=== PATIENT | male | born 1960 | race African-American/Black ===

== ENCOUNTER 2022-10-28 17:42 | Inpatient (IN) | payer OTHER ==
[2022-10-28 17:58] VITALS: BMI 32.6
[2022-10-28 18:55] LABS: BASO % 0.3 % (0-2.0); EOS % 0.1 % (0-4.5); HEMATOCRIT 36.5 % (35.4-49); HEMOGLOBIN 11.8 GM/dL (11.7-16.9); LYMPH % 17.8 % (8-40); MCH 27.3 pg (25.7-33.7); MCHC 32.3 g/dl (32.0-35.9); MEAN CELL VOLUME 84.4 fl (80-96); MEAN PLT VOLUME 8.6 fl (7.5-11.1); MONO % 12.2 % (3.8-10.2); NEUT % 69.6 % (42.8-82.8); PLATELET COUNT 353 10^3/uL (134-434); RBC 4.32 M/mm3 (4.00-5.60); RDW 16.3 % (11.9-15.9); VENOUS BASE EXCESS -2.5 mmol/L (-2-2); VENOUS O2 SATURATION 89.8 % (70-80); VENOUS PH 7.408 (7.310-7.410); WHITE BLOOD COUNT 6.9 K/mm3 (4.0-10.0)
[2022-10-28 19:00] LABS: INR 1.28 (0.83-1.09); PROTHROMBIN TIME (PATIENT) 14.8 SEC (9.7-13.0)
[2022-10-28 19:02] LABS: ACTIVATED PTT 19.6 SECONDS (25.2-36.5)
[2022-10-28 19:15] LABS: POTASSIUM 4.3 mmol/L (3.5-5.1)
[2022-10-28 19:16] LABS: CALCIUM 9.6 mg/dL (8.5-10.1)
[2022-10-28 19:17] LABS: ALBUMIN 3.4 g/dl (3.4-5.0); MAGNESIUM 2.1 mg/dL (1.8-2.4)
[2022-10-28 19:20] LABS: CREATININE 1.1 mg/dL (0.55-1.3)
[2022-10-28 19:22] LABS: BILIRUBIN,TOTAL 0.4 mg/dL (0.2-1); TOT PROT 7.3 g/dl (6.4-8.2)
[2022-10-28 19:25] LABS: N-TERMINAL BNP 125.8 pg/ml (5-125)
[2022-10-28 19:33] LABS: LACTIC ACID 3.4 mmol/L (0.4-2.0)
[2022-10-28] MEDS: ALBUTEROL SO4 2.5/IPRATROPIUM 0.5 INH SOL 3 ML VIAL.NEB. NEB SCH ×3 (20:15→21:21)
[2022-10-28] MEDS ORDERED: SODIUM CHLORIDE 0.9% 500 ML INFUS.BAG IV ONE (20:29)
[2022-10-28] MEDS ORDERED: CEFTRIAXONE 1 GM in DEXTROSE 5%-WATER - 50 ML IVPB ONE (20:29)
[2022-10-28] MEDS ORDERED: AZITHROMYCIN IVPB 500 MG in DEXTROSE 5%-WATER - 250 ML IVPB ONE (20:29)
[2022-10-28] MEDS ORDERED: ALBUTEROL SO4 2.5/IPRATROPIUM 0.5 INH SOL 3 ML VIAL.NEB. NEB ONE (20:36)
[2022-10-28] MEDS ORDERED: CEFTRIAXONE 1 GM/50 ML BAG ONE (20:37)
[2022-10-28] MEDS ORDERED: AZITHROMYCIN IVPB 500 MG/250 ML BAG IVPB ONE (20:37)
[2022-10-28 22:31] LABS: SYPHILIS W/ RPR CONF NON-REACTIVE (NONREACTIVE)
[2022-10-28 22:43] LABS: HIV INTERPRETATION NEGATIVE (NEGATIVE)
[2022-10-29 00:07] LABS: EPI CELLS 14 /uL (0-25.1); HYALINE CASTS 3 /uL (0-3.1); PH,URINE 5.5 (5.0-8.0); URINE APPEARANCE CLEAR; URINE BACTERIA 4 /uL (0-1359); URINE BILIRUBIN NEGATIVE (NEGATIVE); URINE COLOR DK YELLOW; URINE GLUCOSE (UA) 1+ (NEGATIVE); URINE KETONE TRACE (NEGATIVE); URINE LEUK ESTERASE NEGATIVE (NEGATIVE); URINE NITRITE NEGATIVE (NEGATIVE); URINE PROTEIN 1+ (NEGATIVE); URINE WBC 13 /uL (0-25.8)
[2022-10-29 01:08] LABS: COCAINE, UR NEGATIVE (NEGATIVE)
[2022-10-29 01:10] LABS: METHADONE, UR NEGATIVE (NEGATIVE); OPIATES, URI NEGATIVE (NEGATIVE); PHENCYCLIDINE,URINE NEGATIVE (NEGATIVE); URINE AMPHETAMINES NEGATIVE (NEGATIVE); URINE BARBITURATES NEGATIVE (NEGATIVE)
[2022-10-29 01:20] LABS: URINE BENZODIAZEPINES NEGATIVE (NEGATIVE)
[2022-10-29] MEDS ORDERED: methylPREDNISolone NA SUCC 125 MG/2 ML VIAL IVPUSH ONE (02:25)
[2022-10-29] MEDS ORDERED: guaiFENesin 200 MG/10 ML 10 ML UNIT-DOSE CUPS PO PRN (02:26)
[2022-10-29] MEDS ORDERED: ALBUTEROL SO4 0.083% IH SOL 2.5 MG/3 ML VIAL.NEB. NEB ONE (02:58)
[2022-10-29] MEDS ORDERED: ALBUTEROL SO4 2.5/IPRATROPIUM 0.5 INH SOL 3 ML VIAL.NEB. NEB ONE (03:17)
[2022-10-29 04:00] VITALS: RESP 20
[2022-10-29] MEDS ORDERED: traMADol HCL 50 MG TABLET PO ONE (04:47)
[2022-10-29] MEDS: MELATONIN 5 MG TABLETS PO PRN ×2 (05:04→21:34)
[2022-10-29 07:38] LABS: URINE RBC 63.4 /uL (0-23.9)
[2022-10-29] MEDS: ALBUTEROL SO4 2.5/IPRATROPIUM 0.5 INH SOL 3 ML VIAL.NEB. NEB SCH ×2 (07:55→11:16)
[2022-10-29] MEDS ORDERED: BUDESONIDE 0.25 MG/2ML INH SUSP VIAL NEB SCH (08:00)
[2022-10-29] MEDS: INSULIN SLIDING SCALE (NOVOLOG) 1 VIAL SQ SCH ×4 (08:30→21:32)
[2022-10-29] MEDS: INSULIN (LEVEMIR) 100 UNITS/ML UNITS SQ SCH (08:30)
[2022-10-29 08:36] LABS: BASO % 0.3 % (0-2.0); HEMATOCRIT 34.8 % (35.4-49); HEMOGLOBIN 11.6 GM/dL (11.7-16.9); LYMPH % 19.3 % (8-40); MCH 27.8 pg (25.7-33.7); MCHC 33.3 g/dl (32.0-35.9); MEAN CELL VOLUME 83.7 fl (80-96); MEAN PLT VOLUME 7.8 fl (7.5-11.1); MONO % 4.4 % (3.8-10.2); PLATELET COUNT 341 10^3/uL (134-434); RBC 4.16 M/mm3 (4.00-5.60); RDW 16.2 % (11.9-15.9); WHITE BLOOD COUNT 5.5 K/mm3 (4.0-10.0)
[2022-10-29 08:38] LABS: POTASSIUM 4.9 mmol/L (3.5-5.1)
[2022-10-29 08:40] LABS: CALCIUM 9.6 mg/dL (8.5-10.1)
[2022-10-29] MEDS: guaiFENesin/D-METHORPHAN HB 10 ML UNIT-DOSE CUPS PO SCH ×3 (08:41→21:34)
[2022-10-29 08:42] LABS: ALBUMIN 3.2 g/dl (3.4-5.0); BLOOD UREA NITROGEN 31.1 mg/dL (7-18)
[2022-10-29 08:44] LABS: CREATININE 1.1 mg/dL (0.55-1.3); PHOSPHOROUS 3.3 mg/dL (2.5-4.9)
[2022-10-29 08:45] LABS: BILIRUBIN,TOTAL 0.4 mg/dL (0.2-1); TOT PROT 7.2 g/dl (6.4-8.2)
[2022-10-29 08:47] LABS: LACTIC ACID 3.3 mmol/L (0.4-2.0)
[2022-10-29] MEDS ORDERED: AZITHROMYCIN IVPB 500 MG in DEXTROSE 5%-WATER - 250 ML IVPB SCH (10:00)
[2022-10-29] MEDS ORDERED: methylPREDNISolone NA SUCC 40 MG/1 ML VIAL IVPUSH SCH (10:00)
[2022-10-29] MEDS ORDERED: ASPIRIN 81 MG CHEWABLE TABLETS PO SCH (10:00)
[2022-10-29] MEDS ORDERED: ENOXAPARIN NA (PORCINE) 40 MG/0.4 ML DISP.SYRIN SQ SCH (10:00)
[2022-10-29] MEDS: PANTOPRAZOLE 20 MG TABLET PO SCH (10:56)
[2022-10-29] MEDS: DOCUSATE SODIUM 100 MG CAPSULE (FP) PO SCH ×2 (10:56→21:34)
[2022-10-29] MEDS: CEFTRIAXONE 1 GM in DEXTROSE 5%-WATER - 50 ML IVPB SCH (10:56)
[2022-10-29] MEDS ORDERED: AZITHROMYCIN IVPB 500 MG/250 ML BAG IVPB SCH (11:43)
[2022-10-29] MEDS: OXYBUTYNIN CHLORIDE 5 MG TABLET PO SCH ×2 (12:45→21:33)
[2022-10-29] MEDS ORDERED: ALBUTEROL SO4 0.083% IH SOL 2.5 MG/3 ML VIAL.NEB. NEB PRN (12:46)
[2022-10-29] MEDS: FLUTICASONE/UMECLIDIN/VILANTER(200-62.5-25 TRELEGY ELLIPTA) INAHLER IH SCH (14:40)
[2022-10-29] MEDS: methylPREDNISolone NA SUCC 40 MG/1 ML VIAL IVPUSH SCH ×2 (15:04→21:34)
[2022-10-29] MEDS: ALBUTEROL SO4 0.083% IH SOL 2.5 MG/3 ML VIAL.NEB. NEB SCH ×2 (16:17→20:08)
[2022-10-29] MEDS ORDERED: ATORVASTATIN CA 40 MG TABLET (FP) PO SCH (22:00)
[2022-10-29] MEDS ORDERED: TAMSULOSIN HCL 0.4 MG CAP PO SCH (22:00)
[2022-10-29] MEDS ORDERED: MONTELUKAST NA 10 MG TABLET PO SCH (22:00)
[2022-10-30] MEDS: methylPREDNISolone NA SUCC 40 MG/1 ML VIAL IVPUSH SCH ×2 (02:06→09:12)
[2022-10-30] MEDS: guaiFENesin/D-METHORPHAN HB 10 ML UNIT-DOSE CUPS PO SCH ×4 (02:07→13:08)
[2022-10-30] MEDS ORDERED: traMADol HCL 50 MG TABLET PO ONE (02:17)
[2022-10-30] MEDS: ALBUTEROL SO4 0.083% IH SOL 2.5 MG/3 ML VIAL.NEB. NEB SCH ×4 (04:00→12:50)
[2022-10-30] MEDS: INSULIN SLIDING SCALE (NOVOLOG) 1 VIAL SQ SCH ×2 (06:20→12:42)
[2022-10-30] MEDS: INSULIN (LEVEMIR) 100 UNITS/ML UNITS SQ SCH (06:21)
[2022-10-30 08:36] LABS: HEMATOCRIT 34.3 % (35.4-49); HEMOGLOBIN 11.3 GM/dL (11.7-16.9); MCH 27.8 pg (25.7-33.7); MEAN CELL VOLUME 84.3 fl (80-96); MEAN PLT VOLUME 7.8 fl (7.5-11.1); PLATELET COUNT 286 10^3/uL (134-434); RBC 4.06 M/mm3 (4.00-5.60); RDW 16.4 % (11.9-15.9); WHITE BLOOD COUNT 8.9 K/mm3 (4.0-10.0)
[2022-10-30 08:55] LABS: POTASSIUM 5.2 mmol/L (3.5-5.1)
[2022-10-30 08:58] LABS: CALCIUM 9.7 mg/dL (8.5-10.1)
[2022-10-30 08:59] LABS: MAGNESIUM 2.4 mg/dL (1.8-2.4)
[2022-10-30 09:01] LABS: BLOOD UREA NITROGEN 38.1 mg/dL (7-18)
[2022-10-30 09:02] LABS: CREATININE 1.2 mg/dL (0.55-1.3); PHOSPHOROUS 4.4 mg/dL (2.5-4.9)
[2022-10-30] MEDS: CEFTRIAXONE 1 GM in DEXTROSE 5%-WATER - 50 ML IVPB SCH (09:11)
[2022-10-30] MEDS: FLUTICASONE/UMECLIDIN/VILANTER(200-62.5-25 TRELEGY ELLIPTA) INAHLER IH SCH (09:12)
[2022-10-30] MEDS: DOCUSATE SODIUM 100 MG CAPSULE (FP) PO SCH (09:12)
[2022-10-30] MEDS: OXYBUTYNIN CHLORIDE 5 MG TABLET PO SCH (09:12)
[2022-10-30] MEDS: PANTOPRAZOLE 20 MG TABLET PO SCH (09:12)
[2022-10-30 09:19] LABS: LACTIC ACID 4.6 mmol/L (0.4-2.0)
[2022-10-30 13:59] VITALS: BP 110/71; PULSE 117; TEMP 97.6
[2022-10-30] MEDS ORDERED: SODIUM CHLORIDE 1,000 ML IV SCH (14:00)
== END 2022-10-30 14:41 | disposition short-term general hospital (02) | DRG 207 ==
LOC: JER 17:42 → JERBED 21:37 → J4W 10-29 02:32
PROVIDERS: ADMIT Internal Medicine; ATTEND Internal Medicine
DX: I31.39 Other pericardial effusion (noninflammatory) (principal); R55 Syncope and collapse; E11.9 Type 2 diabetes mellitus without complications; I10 Essential (primary) hypertension; E78.5 Hyperlipidemia, unspecified; J44.9 Chronic obstructive pulmonary disease, unspecified; N40.0 Benign prostatic hyperplasia without lower urinary tract symptoms; E87.20 Acidosis, unspecified; F17.210 Nicotine dependence, cigarettes, uncomplicated; N50.89 Other specified disorders of the male genital organs
CPT/HCPCS: 0241U-QW; 36415; 70450-TC; 71045-TC-FY; 71275-TC; 76705-TC; 80048; 80053; 80307; 81003; 82803; 82962; 83605; 83735; 83880; 84100; 84443; 84484; 85025; 85027; 85610; 85730; 86480; 86780; 86850; 86900; 86901; 87070; 87077; 87086; 87186; 87205; 87385; 87389; 87491; 87591; 87899; 93005; 93010; 93306-TC; 94640; 99285-25; Q9967